=== PATIENT | female | born 1950 | race African-American/Black ===

== ENCOUNTER → 2017-07-22 | Outpatient (CLI) | payer MEDICARE, MEDICAID | END | disposition home or self-care (01) | LOC: US 08:30 | PROVIDERS: ATTEND Internal Medicine Gastroenterology | DX: R10.9 Unspecified abdominal pain (principal) | CPT/HCPCS: 76700 ==

== ENCOUNTER 2018-12-30 10:25 | Emergency (ER) | payer MEDICARE, MEDICAID ==
[~2018-12-30] VITALS: Ht 160 cm; Wt 91.0 kg
[2018-12-30] MEDS ORDERED: IBUPROFEN 600MG TABLET PO ONE (11:30)
[2018-12-30 14:00] VITALS: BP 125/76
== END 2018-12-30 14:14 | disposition home or self-care (01) ==
LOC: ER 10:25
DX: R51 Headache (principal); M25.511 Pain in right shoulder; I10 Essential (primary) hypertension; M19.90 Unspecified osteoarthritis, unspecified site
CPT/HCPCS: 93005; 99283